=== PATIENT | male | born 1960 | race Caucasian/White ===

== ENCOUNTER 2018-06-27 21:15 | Emergency (ER) | payer BC ==
[~2018-06-27] VITALS: Ht 167.6 cm; Wt 74.8 kg
[2018-06-27 21:39] VITALS: Ht 167.6 cm; Wt 74.8 kg
[2018-06-28 02:42] VITALS: BP 145/72
== END 2018-06-28 02:42 | disposition home or self-care (01) ==
LOC: ED 21:15
DX: S43.401A Unspecified sprain of right shoulder joint, initial encounter (principal); S83.92XA Sprain of unspecified site of left knee, initial encounter; S50.01XA Contusion of right elbow, initial encounter; S80.212A Abrasion, left knee, initial encounter; S80.211A Abrasion, right knee, initial encounter; W01.198A Fall on same level from slipping, tripping and stumbling with subsequent striking against other object, initial encounter; I10 Essential (primary) hypertension; E11.9 Type 2 diabetes mellitus without complications; Y93.01 Activity, walking, marching and hiking; Y92.89 Other specified places as the place of occurrence of the external cause; Y99.8 Other external cause status
CPT/HCPCS: Q0092

== ENCOUNTER 2019-02-10 16:15 | Emergency (ER) | payer MEDICAID ==
[~2019-02-10] VITALS: Ht 165.1 cm; Wt 78.0 kg
[2019-02-10 16:45] VITALS: Ht 165.1 cm; Wt 78.0 kg
[2019-02-10 20:01] VITALS: BP 133/89
== END 2019-02-10 20:01 | disposition home or self-care (01) ==
LOC: ED 16:15
DX: J98.01 Acute bronchospasm (principal); E11.9 Type 2 diabetes mellitus without complications; I10 Essential (primary) hypertension; F17.210 Nicotine dependence, cigarettes, uncomplicated; Z98.890 Other specified postprocedural states
CPT/HCPCS: 82962; 87804; 99406; J2930; J7613; J7644